=== PATIENT | female | born 1950 | race Caucasian/White ===

== ENCOUNTER → 2016-06-10 | Outpatient (CLI) | payer BC ==
--- NOTE | ~2016-06-10 | BD1 ---
[facility] A Service of [facility] RADIOLOGY TEXT RESULTS PATIENT: MELISSA THOMAS LOCATION: [facility] : 48 UNIT #: [id number] AGE: [address]: Rebecca Harrington MD SEX: F ORDER DR: [id number] [facility] [address] [place], [place] [address] [id number] O MR#: [id number] Acc #: [id number] NAME: MELISSA THOMAS : 1950 SEX: F STUDY DATE/TIME: 06/10/2016 13:16 UNIT: [facility] ROOM: STUDY DESCRIPTION: BD Dexa Bone Dens 1+ Site Attending Physician: Rebecca Harrington M.D. Ordering Physician: Rebecca Harrington M.D. Primary Care Physician: Rebecca Harrington M.D. MEDICAL IMAGING REPORT This report is preliminary unless electronic signature is present EXAM Bone density spine and hip 06/10/2016 HISTORY Smoker for 20 years, currently smoking. Family history of osteoporosis in mother. Post menopausal. FINDINGS Bone density scanning performed upper four lumbar vertebral segments and left proximal femur in 164-pound 66-year-old female. Most recent comparison 05/20/2014. L1-L4: Total bone mineral density 0.914 grams per square centimeter for T-score 1.2 standard deviations below mean for reference population normal young individuals and Z-score 0.7 standard deviations above mean for age matched population. Compared to 05/20/2014 there has been a 1.4% decrease in bone mineral density upper 4 lumbar segments. Proximal left femur: Total bone mineral density 0.935 grams per square centimeter for T-score 0.1 standard deviations below mean for reference population normal young individuals and Z-score 1.3 standard deviations above mean for age matched population. Left femoral neck bone mineral density 0.755 grams per square centimeter for T-score 0.8 standard deviations below mean for reference population normal young individuals and Z-sore 0.8 standard deviations above mean for age matched population. Using total bone mineral density as trending value in this region there has been a 6.5% statistically significant increase in bone mineral density in the proximal left femur compared to 05/20/2014. IMPRESSION 1. Osteopenia in the upper four lumbar vertebral segments overall. Patient is felt to be at increased risk for fracture. Treatment [facility] A Service of [facility] RADIOLOGY TEXT RESULTS PATIENT: MELISSA THOMAS LOCATION: [facility] : 48 UNIT #: [id number] AGE: [address]: Rebecca Harrington MD SEX: F ORDER DR: options may be considered. Continued surveillance is recommended. 2. Statistically significant increase in left proximal femur total bone mineral density compared to April 2014. See complete trending data in body of report above. Dictated by... Brody Arambula M.D. THIS IS AN ELECTRONICALLY VERIFIED REPORT Brody Arambula M.D. at 06/11/2016 2:17 PM José TD: 06/11/2016 10:54 JOB #: [id number] MEDICAL IMAGING REPORT Page 1 of 1 COPY
--- NOTE | ~2016-06-10 | MY11 ---
[facility] A Service of [facility] RADIOLOGY TEXT RESULTS PATIENT: MELISSA THOMAS LOCATION: [facility] : 48 UNIT #: [id number] AGE: [address]: Rebecca Harrington MD SEX: F ORDER DR: [id number] [facility] [address] [place], [place] [address] [id number] O MR#: [id number] Acc #: [id number] NAME: MELISSA THOMAS : 1950 SEX: F STUDY DATE/TIME: 06/10/2016 13:07 UNIT: [facility] ROOM: STUDY DESCRIPTION: MY Mammogram Screening Dig Venkatesh Attending Physician: Rebecca Harrington M.D. Ordering Physician: Rebecca Harrington M.D. Primary Care Physician: Rebecca Harrington M.D. MEDICAL IMAGING REPORT This report is preliminary unless electronic signature is present EXAM Digital screening mammogram 06/10/2016 HISTORY 66-year-old woman, positive family history, mother. Annual screen. COMPARISON STUDIES Comparison mammograms date to 07/14/2007 with most recent 05/22/2015. FINDINGS Digital imaging of each breast was completed utilizing screening protocol. Review includes FDA-approved CAD device. Breast parenchyma is partially fatty replaced and very mildly heterogeneous. Subareolar duct prominence is noted in each breast. Intramammary lymph nodes right breast are stable. There is no interval occurring mass. There are no suspicious microcalcifications and no suspicious architectural deformity. IMPRESSION Stable benign mammogram. Annual screening recommended. BIRADS II Patients over the age of 40 are entered into a reminder system with target due date for the next mammogram. A result letter will also be sent to the patient. BIRADS: 2 - Benign finding Dictated by... Thien Blake M.D. THIS IS AN ELECTRONICALLY VERIFIED REPORT Thien Blake M.D. at 06/11/2016 8:04 AM [facility] A Service of [facility] RADIOLOGY TEXT RESULTS PATIENT: MELISSA THOMAS LOCATION: [facility] : 48 UNIT #: [id number] AGE: [address]: Rebecca Harrington MD SEX: F ORDER DR: MARIANN/ana laura TD: 06/10/2016 16:17 JOB #: [id number] MEDICAL IMAGING REPORT Page 1 of 1 COPY
== END | disposition home or self-care (01) ==
LOC: CWCC 12:22
DX: Z13.820 Encounter for screening for osteoporosis (principal); Z12.31 Encounter for screening mammogram for malignant neoplasm of breast; Z80.3 Family history of malignant neoplasm of breast; M85.88 Other specified disorders of bone density and structure, other site
CPT/HCPCS: 77080; G0202

== ENCOUNTER → 2016-09-18 | Outpatient (CLI) | payer BC ==
--- NOTE | ~2016-09-18 | US37 ---
[facility] A Service of [facility] RADIOLOGY TEXT RESULTS PATIENT: MELISSA THOMAS LOCATION: [facility] : 48 UNIT #: [id number] AGE: [address]: Rebecca Harrington MD SEX: F ORDER DR: [id number] [facility] [address] [place], [place] [address] [id number] O MR#: [id number] Acc #: [id number] NAME: MELISSA THOMAS : 1950 SEX: F STUDY DATE/TIME: 09/18/2016 14:58 UNIT: [facility] ROOM: STUDY DESCRIPTION: US Carotid W/Doppler Bilateral Attending Physician: Rebecca Harrington M.D. Referring Physician: Rebecca Harrington M.D. Ordering Physician: Rebecca Harrington M.D. Primary Care Physician: Rebecca Harrington M.D. MEDICAL IMAGING REPORT This report is preliminary unless electronic signature is present EXAM Carotid duplex scan. DATE OF EXAM 09/18/2016 HISTORY Syncope. EXAM The right common carotid artery has minimal plaque. The right internal and external carotid arteries are patent with minimal plaque. Peak systolic velocity in the distal right internal carotid artery is 108 cm/sec with an end-diastolic velocity of 45 cm/sec. The ICA to CCA ratio on the right is 1.2. Peak systolic velocity in the right external carotid artery is 109 cm/sec. The right vertebral artery is patent with antegrade flow. Left common carotid artery has minimal plaque. The left internal and external carotid arteries are patent with minimal plaque. Peak systolic velocity in the distal left internal carotid artery is 98 cm/sec with an end-diastolic velocity of 36 cm/sec. The ICA to CCA ratio on the left is 1.2. Peak systolic velocity in the left external carotid artery is 74 cm/sec. Left vertebral artery is patent with antegrade flow. IMPRESSION No significant stenosis (less than 50%) in the internal and external carotid arteries bilaterally. Patent vertebral arteries bilaterally with antegrade flow. [facility] A Service of [facility] RADIOLOGY TEXT RESULTS PATIENT: MELISSA THOMAS LOCATION: [facility] : 48 UNIT #: [id number] AGE: [address]: Rebecca Harrington MD SEX: F ORDER DR: Dictated by... Danny Dennis M.D. THIS IS AN ELECTRONICALLY VERIFIED REPORT Danny Dennis M.D. at 09/19/2016 7:37 AM YAZMIN/jayy TD: 09/18/2016 19:55 JOB #: [id number] MEDICAL IMAGING REPORT Page 1 of 1 COPY
== END | disposition home or self-care (01) ==
LOC: CNIV 14:34 → CWCC 15:00
DX: R55 Syncope and collapse (principal)
CPT/HCPCS: 93880